=== PATIENT | male | born 1975 | race Caucasian/White ===

== ENCOUNTER → 2021-05-16 | Outpatient (REF) ==
--- NOTE | 2021-05-16 16:33 | REP ---
INDICATION: ROTATOR CUFF SURGERY. COMPARISON: None. TECHNIQUE: Three views of the right shoulder were performed. FINDINGS: The acromioclavicular and glenohumeral relationships are within normal limits. There is no acute fracture or destructive osseous lesion. 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 IMPRESSION: No acute abnormality. Chronic changes as described above. <Electronically signed by Jayjay Rosales > 05/16/21 [id number]
== END ==
LOC: M PLAIMG 14:44 → M PLARAD 14:44
PROVIDERS: ATTEND Internal Medicine
DX: Z47.89 Encounter for other orthopedic aftercare (principal)

== ENCOUNTER 2023-03-17 06:38 | Day surgery (SDC) | payer BC ==
[~2023-03-17] VITALS: Ht 182.9 cm; Wt 105.3 kg
[~2023-03-17 06:38] MED LIST: ATOR1TAB19 PO; BACL10TA2 PO; BUPR150T12 PO; BUSP1TAB PO; DULA4.5P; DULO1CAP4 PO; GABA-282 PO; JARD1TAB PO; LOSA50TA28 PO; METF10004 PO; METO1TAB32 PO; NS 1,000 ML IV ONE; OMEP-173 PO; TAMS1CAP17 PO; VENL150C43 PO
[2023-03-17 08:04] VITALS: TEMP 97.1
[2023-03-17 08:24] VITALS: BP 117/61; O2SAT 96
== END 2023-03-17 08:24 | disposition home or self-care (01) ==
LOC: M OPP 06:38
PROVIDERS: ATTEND Internal Medicine Gastroenterology
DX: Z12.11 Encounter for screening for malignant neoplasm of colon (principal); D12.6 Benign neoplasm of colon, unspecified; K64.4 Residual hemorrhoidal skin tags; K64.8 Other hemorrhoids; K22.70 Barrett's esophagus without dysplasia; K21.00 Gastro-esophageal reflux disease with esophagitis, without bleeding; K29.70 Gastritis, unspecified, without bleeding; K44.9 Diaphragmatic hernia without obstruction or gangrene; F17.200 Nicotine dependence, unspecified, uncomplicated; E11.9 Type 2 diabetes mellitus without complications; G47.30 Sleep apnea, unspecified; Z99.89 Dependence on other enabling machines and devices; Z79.02 Long term (current) use of antithrombotics/antiplatelets; Z79.83 Long term (current) use of bisphosphonates; Z79.84 Long term (current) use of oral hypoglycemic drugs; Z79.899 Other long term (current) drug therapy; Z91.013 Allergy to seafood